=== PATIENT | female | born 1990 | race Caucasian/White ===

== ENCOUNTER 2019-04-07 12:27 | Emergency (ER) | payer OTHER ==
[2019-04-07 12:59] LABS: ADD MAN DIFF? NO
[2019-04-07 13:03] LABS: BASOPHILS % 0.4 % (0.0-2.0); EOSINOPHILS % 0.2 % (0.0-7.0); HEMATOCRIT 40.3 % (37.0-47.0); HEMOGLOBIN 13.1 g/dl (12.0-16.0); LYMPHOCYTES # 1.5 10^3/ul (0.8-2.9); LYMPHOCYTES % 14.1 % (15.0-51.0); MEAN CORPUSCULAR HEMOGLOBIN 30.8 pg (29.0-33.0); MEAN CORPUSCULAR HGB CONC 32.5 g/dl (32.0-37.0); MEAN CORPUSCULAR VOLUME 94.8 fl (82.0-101.0); MEAN PLATELET VOLUME 10.7 fl (7.4-10.4); MONOCYTE # 0.8 10^3/ul (0.3-0.9); MONOCYTES % 6.9 % (0.0-11.0); NEUTROPHIL # 8.6 10^3/ul (1.6-7.5); NEUTROPHILS % 78.1 % (39.0-77.0); PLATELET COUNT 257 10^3/UL (140-415); RED BLOOD COUNT 4.25 10^6/ul (4.20-5.40)
[2019-04-07 13:09] LABS: ADD UMIC YES; UR ASCORBIC ACID NEGATIVE (NEGATIVE); UR BACTERIA FEW /HPF (NONE SEEN); UR BILIRUBIN (Dip) NEGATIVE (NEGATIVE); UR BLOOD (Dip) 1+ mg/dL (NEGATIVE); UR CLARITY CLOUDY (CLEAR); UR COLOR YELLOW (YELLOW); UR GLUCOSE (Dip) NEGATIVE (NEGATIVE); UR KETONES (Dip) NEGATIVE (NEGATIVE); UR LEUKOCYTE ESTERASE (Dip) 3+ Leu/ul (NEGATIVE); UR MUCUS MODERATE /HPF (NONE SEEN); UR NITRITE (Dip) POSITIVE (NEGATIVE); UR RBC 84 /HPF (0-5); UR SPECIFIC GRAVITY (Dip) 1.015 (1.003-1.030); UR SQUAMOUS EPITHELIAL CELL FEW /HPF (FEW); UR TOTAL PROTEIN (Dip) 2+ mg/dl (NEGATIVE); UR UROBILINOGEN (Dip) NEGATIVE (NEGATIVE); UR WBC > 182 /HPF (0-5)
[2019-04-07] MEDS: SOD CHLORIDE 0.9% 1,000 ML IV (13:20)
[2019-04-07] MEDS: SODIUM CHLORIDE 0.9% 1L BAG IV* (13:21)
[2019-04-07] MEDS: LEVOFLOXACIN 750MG/D5W (PMX) 150 ML IVPB (13:22)
[2019-04-07] MEDS: morphine 4 MG/ML VIAL IV (13:22)
[2019-04-07] MEDS: ACETAMINOPHEN 500 MG TAB PO (13:22)
[2019-04-07] MEDS: ONDANSETRON 4 MG INJ IV (13:23)
[2019-04-07 13:27] LABS: ALANINE AMINOTRANSFERASE 44 IU/L (13-69); ALBUMIN 4.1 g/dl (3.3-4.9); ALBUMIN/GLOBULIN RATIO 1.05; ALKALINE PHOSPHATASE 92 IU/L (42-121); ANION GAP 12 (5-13); ASPARTATE AMINO TRANSFERASE 28 IU/L (15-46); BILIRUBIN,INDIRECT 0.5 mg/dl (0-1.1); BILIRUBIN,TOTAL 0.5 mg/dl (0.2-1.3); BLOOD UREA NITROGEN 13 mg/dl (7-20); CALCIUM 9.1 mg/dl (8.4-10.2); CARBON DIOXIDE 28 mmol/L (21-31); CHLORIDE 101 mmol/L (97-110); CREATININE 0.72 mg/dl (0.44-1.00); Estimated GFR > 60 mL/min (>60); GLUCOSE 173 mg/dl (70-220); POTASSIUM 3.9 mmol/L (3.5-5.1); SODIUM 141 mmol/L (135-144)
[2019-04-07] MEDS: IOHEXOL 300MG/ML 150 ML BTL (13:42)
[2019-04-07] MEDS: SOD CHLORIDE 0.9% 100 ML (13:42)
[2019-04-07 15:43] LABS: LACTIC ACID 1.4 mmol/L (0.5-2.0)
== END 2019-04-07 16:34 | disposition home or self-care (01) ==
LOC: E/R 12:27
DX: N12 Tubulo-interstitial nephritis, not specified as acute or chronic (principal); F17.210 Nicotine dependence, cigarettes, uncomplicated
CPT/HCPCS: 36415; 74177; 80053; 81001; 81025; 83605; 85025; 87040-91; 87086; 96374; 96375; 99285-25